=== PATIENT | male | born 1980 | race African-American/Black ===

== ENCOUNTER 2018-11-03 19:29 | Emergency (ER) | payer OTHER ==
[~2018-11-03] VITALS: Ht 180.3 cm; Wt 70.0 kg
[2018-11-03 19:51] VITALS: BP 115/70; TEMP 99.3
[2018-11-03 22:15] VITALS: PULSE 68
== END 2018-11-03 22:15 | disposition home or self-care (01) ==
LOC: COL.ER 19:29
DX: J10.1 Influenza due to other identified influenza virus with other respiratory manifestations (principal)